=== PATIENT | female | born 1955 | race Caucasian/White ===

== ENCOUNTER → 2017-05-09 | Outpatient (CLI) | payer BC | LOC: MC.RAD 16:14 | DX: Z12.31 Encounter for screening mammogram for malignant neoplasm of breast (principal) ==

== ENCOUNTER → 2018-06-13 | Outpatient (CLI) | payer BC | LOC: COL.RAD 14:40 | DX: M22.42 Chondromalacia patellae, left knee (principal); M25.462 Effusion, left knee ==

== ENCOUNTER → 2018-09-15 | Outpatient (CLI) | payer BC | LOC: MC.RAD 08-19 11:00 | DX: Z12.31 Encounter for screening mammogram for malignant neoplasm of breast (principal) ==

== ENCOUNTER → 2019-10-19 | Outpatient (CLI) | payer BC | LOC: MC.RAD 10:26 | DX: Z12.31 Encounter for screening mammogram for malignant neoplasm of breast (principal) ==

== ENCOUNTER → 2020-10-24 | Outpatient (CLI) | payer BC | LOC: MC.RAD 09:34 | DX: Z12.31 Encounter for screening mammogram for malignant neoplasm of breast (principal) ==

== ENCOUNTER → 2021-12-18 | Outpatient (CLI) | payer BC | LOC: MC.RAD 12:58 | DX: Z12.31 Encounter for screening mammogram for malignant neoplasm of breast (principal) ==

== ENCOUNTER → 2023-01-30 | Outpatient (CLI) | payer MEDICARE, BC | LOC: MC.RAD 14:19 | DX: Z12.31 Encounter for screening mammogram for malignant neoplasm of breast (principal) ==

== ENCOUNTER → 2024-02-06 | Outpatient (CLI) | payer MEDICARE, BC | LOC: MC.RAD 08:58 | DX: Z12.31 Encounter for screening mammogram for malignant neoplasm of breast (principal) ==